=== PATIENT | female | born 1955 | race Caucasian/White ===

== ENCOUNTER 2019-03-16 08:22 | Emergency (ER) | payer OTHER ==
[~2019-03-16] VITALS: Ht 160 cm; Wt 79.8 kg
[2019-03-16] MEDS ORDERED: LEXAPRO20 MG PO (08:40)
[2019-03-16] MEDS ORDERED: ASPIR 8181 MG PO (08:40)
[2019-03-16] MEDS ORDERED: ALTACE1.25 MG PO (08:41)
[2019-03-16] MEDS ORDERED: WELLBUTRIN SR100 MG PO (08:41)
[2019-03-16] MEDS ORDERED: TOPROL XL25 M1 PO (08:42)
[2019-03-16] MEDS ORDERED: CLONAZEPAM2 M1 PO (08:42)
[2019-03-16] MEDS ORDERED: PENTOXIFYLLINE400 MG PO (08:43)
== END 2019-03-16 10:35 | disposition home or self-care (01) ==
LOC: ER 08:22
DX: S00.83XA Contusion of other part of head, initial encounter (principal); W10.8XXA Fall (on) (from) other stairs and steps, initial encounter; Y93.89 Activity, other specified; Y92.098 Other place in other non-institutional residence as the place of occurrence of the external cause; Y99.8 Other external cause status